=== PATIENT | female | born 1995 | race Caucasian/White ===

== ENCOUNTER 2019-10-22 18:14 | Emergency (ER) | payer MEDICAID ==
[~2019-10-22] VITALS: Ht 154.9 cm; Wt 53.5 kg
[2019-10-22 18:16] VITALS: BP_SYST 107
== END 2019-10-22 18:35 ==
LOC: SED 18:14
DX: O26.892 Other specified pregnancy related conditions, second trimester (principal); Z3A.27 27 weeks gestation of pregnancy
CPT/HCPCS: 99283